=== PATIENT | male | born 1970 | race Caucasian/White ===

== ENCOUNTER → 2019-02-18 | Outpatient (CLI) | payer OTHER | END | disposition home or self-care (01) | LOC: LABWHC1 09:40 | PROVIDERS: ATTEND Internal Medicine Critical Care Medicine | DX: J45.909 Unspecified asthma, uncomplicated (principal) | CPT/HCPCS: 36415; 82785; 85008 ==

== ENCOUNTER → 2019-11-19 | Outpatient (CLI) | payer OTHER ==
--- NOTE | 2019-11-19 11:12 | CT ---
EXAMINATION TYPE: CT angio chest DATE OF EXAM: 11/19/2019 COMPARISON: NONE HISTORY: Shortness of breath, chest pains CT DLP: 410.6 mGycm. Automated Exposure Control for Dose Reduction was Utilized. CONTRAST: CTA scan of the thorax is performed with IV Contrast, patient injected with 100 mL of Isovue 370, pul monary embolism protocol. MIP Images are created on CT scanner and reviewed. FINDINGS: LUNGS: The lungs are grossly clear, there is no concerning parenchymal mass or nodule identified. T here is no pleural effusion or pneumothorax seen. The tracheobronchial tree is patent. MEDIASTINUM: Very faint coronary calcifications are suspected in the left main coronary artery, limit ed by contrast bolus timing. There is satisfactory enhancement of the pulmonary artery and its branch es, there is no CT evidence for pulmonary embolism. There are no greater than 1 cm hilar or mediasti nal lymph nodes. No cardiomegaly or pericardial effusion is seen. OTHER: 6 mm exophytic right fluid attenuated renal cyst is seen. Mild multilevel degenerative change of the spine. IMPRESSION: 1. No evidence of pulmonary embolus. No focal consolidation, pleural effusion or pneumothorax. 2. Faint coronary artery calcifications are suspected, a marker of coronary artery disease. Evaluatio n for coronary artery calcifications is limited given bolus timing.
== END | disposition home or self-care (01) ==
LOC: RADCTMAIN 10:17
PROVIDERS: ATTEND Internal Medicine Critical Care Medicine
DX: R06.02 Shortness of breath (principal); I25.10 Atherosclerotic heart disease of native coronary artery without angina pectoris
CPT/HCPCS: 71275; Q9967

== ENCOUNTER 2023-03-27 11:28 | Day surgery (SDC) | payer OTHER ==
[~2023-03-27 11:28] MED LIST: ATROPINE SULFATE 0.4 MG/ML 1 ML VIAL IM ONE; LACTATED RINGERS 1,000 ML IV SCH; LIDOCAINE 1% (10MG/ML) FOR IV START INTRADERMA PRN
[2023-03-27 11:56] VITALS: TEMP 97.9
[2023-03-27] MEDS ORDERED: KETAMINE 10 MG/ML 20 ML VIAL ONE (11:58)
[2023-03-27] MEDS ORDERED: MIDAZOLAM 2 MG/2 ML VIAL ONE (11:58)
[2023-03-27] MEDS ORDERED: fentaNYL (PF) 50 MCG/ML 2 ML AMP ONE (11:58)
[2023-03-27] MEDS ORDERED: PROPOFOL 10 MG/ML 20 ML VIAL IV ONE (11:58)
--- NOTE | 2023-03-27 12:43 | PCN ---
PROCEDURE NOTE PULMONARY/CRITICAL CARE PROCEDURE NOTE: PROCEDURES PERFORMED: Bronchoscopy airway examination, therapeutic lavage, BAL right middle lobe. PREOPERATIVE DIAGNOSES: COPD, retained secretions, chest congestion. POSTOPERATIVE DIAGNOSIS: COPD, retained secretions, chest congestion. ANESTHESIA: General. [employer] Feeder was Dr. Bangura. First surgical services asst was Dr. Yaa Ayala. DESCRIPTION OF PROCEDURE: There was informed consent and universal timeout the patient's procedure took place in [facility] room #1 and anesthesia provided general anesthesia. The procedure again was airway examination, therapeutic lavage, BAL. There was informed consent and universal timeout. Anesthesia provided general anesthesia. After the patient was adequately sedated and being fully monitored, the bronchoscope was inserted through the left nostril. It passed through the left nasopharynx into the oropharynx. The hypopharynx was identified and topicalized. The hypopharyngeal structures, including anterior commissure, true cords, false cords, arytenoids, piriform sinuses, right and left, vallecula, epiglottis, all appeared normal. The glottic opening was topicalized. The bronchoscope was inserted through the bronchoscope. The glottic opening into the trachea. The trachea was normal. Tracheal annmarie was sharp. The right and left mainstem were topicalized. The right upper lobe and its 3 segments, right middle lobe and its 2 segments, right lower lobe and its 5 segments, the left upper lobe proper and its 2 segments, the lingula and its 2 segments in the left lobe and its 4 segments all had similar findings of diffuse airway erythema and hyperemia. The mucosa was friable and bled easily. There were some secretions, not as many as I thought I would see. They were suctioned easily. There was no dominant mass or tumor. The bronchoscope was wedged into the right middle lobe. A formal BAL took place. A 30 mL of fluid was recovered and sent to the laboratory for analysis. The patient tolerated the procedure well without complication. The patient will be recovered. MMODL / IJN: [id number] / MTDD
[2023-03-27 12:45] VITALS: BP 134/91; PULSE 74; RESP 18
[2023-03-29 04:29] LABS: Appearance,BF Hazy (Clear); RBC, Body Fluid 2986 /UL (0-2000)
[2023-04-01 09:34] LABS: Nucleated Cells, Body Fluid 25 /UL
== END 2023-03-27 13:03 | disposition home or self-care (01) ==
LOC: ORWHC2ENDO 11:28
PROVIDERS: ATTEND Internal Medicine Critical Care Medicine
DX: J44.9 Chronic obstructive pulmonary disease, unspecified (principal); Z91.040 Latex allergy status; Z88.0 Allergy status to penicillin; I10 Essential (primary) hypertension; J45.909 Unspecified asthma, uncomplicated; Z79.899 Other long term (current) drug therapy
CPT/HCPCS: 88108; 88305; 31624; J2250; J3010; J2704; 87070; 87075; 87102; 87116; 87205; 87206; 89050